=== PATIENT | male | born 1980 | race Hispanic/Latino ===

== ENCOUNTER 2017-07-15 16:01 | Emergency (ER) | payer OTHER ==
[~2017-07-15] VITALS: Ht 167.6 cm; Wt 79.6 kg
[~2017-07-15 16:01] MED LIST: AMOXICILLIN500 MG PO
[2017-07-15] MEDS ORDERED: SULFACET SOD10 % OS (16:45)
[2017-07-15 16:46] VITALS: BP 137/87
== END 2017-07-15 16:55 | disposition home or self-care (01) | DRG 125 ==
LOC: ED 16:01
DX: S05.01XA Injury of conjunctiva and corneal abrasion without foreign body, right eye, initial encounter (principal); X58.XXXA Exposure to other specified factors, initial encounter; Y93.89 Activity, other specified; Y92.79 Other farm location as the place of occurrence of the external cause